=== PATIENT | female | born 1945 | race African-American/Black ===

== ENCOUNTER → 2018-01-25 | Outpatient (CLI) | payer MEDICARE, MEDICAID ==
[~2018-01-25] MED LIST: LIDOCAINE 2% (LOCAL ANESTH.) PF 5ml SDV ONE
[2018-01-25 09:34] LABS: Basophils # (auto) 0.1 uL; Basophils % (auto) 0.4 % (0.0-2.0); Eosinophils # (auto) 0.2 uL; Hematocrit 26.4 % (36.0-46.0); Hemoglobin 8.5 g/dL (12.2-16.2); Lymphocytes # (auto) 1.5 uL; Lymphocytes % (auto) 8.3 % (10.0-50.0); Mean Corpuscular Hemoglobin 32.3 pg (28.0-32.0); Mean Corpuscular Hgb Conc. 32.1 g/dL (32.0-36.0); Mean Corpuscular Volume 100.5 fL (80.0-100.0); Monocytes # (auto) 1.1 uL; Monocytes % (auto) 6.3 % (0.0-12.0); Neutrophils # (auto) 15.1 uL; Nucleated Red Blood Cells % 0.1 %; Platelet Count (auto) 373 10^3/uL (140-450); Red Blood Cells 2.62 10^6/uL (4.0-5.20); White Blood Cell 17.9 10^3/uL (4.4-10.8)
[2018-01-25 09:44] LABS: Red Cell Distribution Width 25.7 % (11.8-14.3)
[2018-01-25 09:46] LABS: INR 1.96 (0.9-1.15); Prothrombin Time 21.5 sec (9.37-12.3)
== END | disposition home or self-care (01) ==
LOC: US 08:29
DX: R18.8 Other ascites (principal)
CPT/HCPCS: 36415; 49083; 76700; 76942; 85025; 85610; C1729; 10022